=== PATIENT | female | born 2000 | race Caucasian/White ===

== ENCOUNTER → 2022-11-06 16:28 | Outpatient (ROUT) | payer OTHER, SELFPAY ==
[2022-11-06 18:20] LABS: Urine N gonorrhoeae NOT DETECTED
[2022-11-06 18:33] LABS: Urine Chlamydia NOT DETECTED
== END ==
PROVIDERS: PCP Family Medicine; Visit Provider Family Medicine
DX: Z11.3 Encounter for screening for infections with a predominantly sexual mode of transmission (principal)
CPT/HCPCS: 87491; 87591

== ENCOUNTER → 2023-11-25 09:38 | Outpatient (CLI) | payer OTHER, SELFPAY | LOC: CAR 09:39 | PROVIDERS: PCP Family Medicine; Referring Provider Family Medicine; Visit Provider Family Medicine | DX: R00.2 Palpitations (principal); R07.89 Other chest pain; F41.9 Anxiety disorder, unspecified; R06.02 Shortness of breath | CPT/HCPCS: 93242 ==

== ENCOUNTER 2024-01-15 14:16 | Emergency (ER) | payer OTHER, SELFPAY ==
[2024-01-15] VITALS (10 sets, daily range): BP systolic 126–145; BP diastolic 67–93; PULSE 67–103; RESP 14–22; TEMP 36.8; O2SAT 97–100; BMI 20.7
[2024-01-15] MEDS: ONDANSETRON 4 MG/2 ML INJ IV (14:47)
--- NOTE | 2024-01-15 14:48 | ED.NAVMDI ---
HPI - Nausea/Vomiting/Diarrhea General Chief complaint: Nausea/Vomiting/Diarrhea Stated complaint: Vomiting stomach acid, nausea Time Seen by Provider: 01/15/24 14:48 Source: patient Mode of arrival: Ambulatory History of Present Illness HPI Narrative: Otherwise healthy 23-year-old woman presents with 3 days of continuous vomiting. At this point she is unable to keep water down. Minimal diarrhea, abdominal pain secondary to the work of vomiting, she gets hot flushes with vomiting but no overt fevers. No palpitations shortness of breath. No specific headaches, currently has an IUD in place Related Data Home Medications Medication Instructions Recorded Confirmed levonorgestrel 20.4 mcg/24 hr (up intrauterine 08/13/22 11/15/23 to 8 yrs) 52 mg intrauterine device (Liletta) Previous Rx's Medication Instructions Recorded hydroxyzine HCl 10 mg tablet 5 - 10 mg (0.5 - 1 x 10 mg) PO 11/06/22 Q6-8H PRN anxiety #45 tabs fluoxetine 20 mg capsule (Prozac) 20 mg PO DAILY #30 caps 11/15/23 propranolol 10 mg tablet 10 mg PO BID PRN 11/15/23 anxiety/palpitations #60 tabs ondansetron HCl 4 mg tablet 4 mg PO Q8H PRN nausea and 01/15/24 vomiting #14 tabs Allergies Allergy/AdvReac Type Severity Reaction Status Date / Time No Known Drug Allergies Allergy Verified 01/15/24 14:27 Review of Systems Review of Systems Narrative: Pertinent positive and negative findings as per HPI Patient History Medical History Vision disorder Eczema (~2013) Surgical History Bowman teeth removed (~2018) Social History Smoking Status: Never smoker alcohol intake: current substance use type: does not use Smoking Status: Never smoker Alcohol type: hard liquor Exam Initial Vital Signs Initial Vital Signs: Vital Signs Temperature 98.2 F 01/15/24 14:22 Pulse Rate 95 H 01/15/24 14:22 Respiratory Rate 14 01/15/24 14:22 Blood Pressure 145/82 H 01/15/24 14:22 Pulse Oximetry 97 01/15/24 14:22 Oxygen Delivery Method Room Air 01/15/24 14:22 General: in no acute distress. Able to give a complete and coherent history. HEENT: Dry mucous membranes, normal sclera with reactive pupils, Respiratory: Lungs are clear to auscultation, no wheezing no rales no rhonchi. Full and symmetrical air movement Cardiac: Regular rate and rhythm no murmurs no bruits Abdomen: Soft, nontender, good bowel tones, no flank pain Skin: Warm and dry, no rashes Neurologic: Grossly neurologically intact with no obvious asymmetries or abnormalities Extremities: No trauma, well perfused Psych: Cooperative, appropriate insight and affect Course Orders Ordered: ED Orders 01/15/24 14:30 Urine Culture Stat Urine Microscopic Stat 01/15/24 14:40 Complete Blood Count AUTO DIFF Stat Comprehensive Metabolic Panel Stat Lipase Stat 01/15/24 15:31 US abdomen limited Stat Ondansetron HCl (Ondansetron 4 Mg/2 Ml Inj) 4 mg IV NOW PRN PRN Reason: Nausea And Vomiting Last Admin: 01/15/24 14:47 Dose: 4 mg Documented By: JEAN Ondansetron HCl (Ondansetron 4 Mg Odt) 4 mg PO NOW PRN PRN Reason: Nausea And Vomiting Discontinued Medications Droperidol (Droperidol 5 Mg/2 Ml Vial) 0.625 mg IV NOW ONE Stop: 01/15/24 15:32 Last Admin: 01/15/24 15:35 Dose: Not Given Documented By: JEAN Sodium Chloride (Normal Saline 0.9%) 1,000 mls @ 1,000 mls/hr IV BOLUS ONE Stop: 01/15/24 15:53 Last Infusion: 01/15/24 15:29 Dose: Infused Documented By: Admin: 01/15/24 15:00 Dose: 1,000 mls/hr Documented By: JEAN Metoclopramide HCl (Metoclopramide 10 Mg/2 Ml Inj) 10 mg IV NOW ONE Stop: 01/15/24 15:53 Last Admin: 01/15/24 15:55 Dose: 10 mg Documented By: KANA Vital Signs Vital signs: Vital Signs - 8 hr 01/15/24 14:22 Temperature 98.2 F Pulse Rate 95 H Respiratory Rate 14 Blood Pressure 145/82 H Pulse Oximetry 97 Oxygen Delivery Method Room Air MDM - Nausea/Vomiting/Diarrhea Lab Data 01/15/24 14:40 01/15/24 14:40 Labs: Lab Results 01/15/24 01/15/24 Range/Units 14:30 14:40 WBC 5.5 (4.5-11.0) X10^3/uL RBC 4.42 (4.0-5.2) X10^6/uL Hgb 14.3 (12.0-16.0) g/dL Hct 41.6 (36-46) % MCV 94.1 (80-100) fL MCH 32.5 (26-34) PG MCHC 34.5 (30-36) % RDW 12.2 (11.6-14.8) % Plt Count 205 (150-400) X10^3/uL Neut % (Auto) 51.4 (50-75) % Lymph % (Auto) 38.4 (25-40) % Fisher % (Auto) 9.5 (3-14) % Eos % (Auto) 0.3 L (2-4) % Baso % (Auto) 0.4 (0-2) % Neut # (Auto) 2800 (2034-6227) /uL Lymph # (Auto) 2100 (6282-4868) /uL Fisher # (Auto) 500 (0-900) /uL Eos # (Auto) 0 (0-450) /uL Baso # (Auto) 0 (0-100) /uL Sodium 138 (137-145) mmol/L Potassium 3.8 (3.4-5.1) mmol/L Chloride 103 (98-107) mmol/L Carbon Dioxide 23 (22-32) mmol/L BUN 15 (7-17) mg/dL Creatinine 0.72 (0.52-1.04) mg/dL Estimated GFR > 60 (>60) mL/min BUN/Creatinine Ratio 20.8 (6-22) Glucose 101 H (70-100) mg/dL Calcium 9.3 (8.4-10.2) mg/dL Total Bilirubin 1.9 H (0.2-1.3) mg/dL AST 76 H (14-36) IU/L ALT 38 H (<35) IU/L Alkaline Phosphatase 67 (38-126) U/L Total Protein 7.8 (6.3-8.2) g/dL Albumin 4.6 (3.5-5.0) g/dL Globulin 3.2 (1.7-4.1) g/dL Albumin/Globulin Ratio 1.4 (1.0-2.8) Lipase 343 H (23-300) U/L Urine RBC None seen (0-5/HPF) Urine WBC 0-1/hpf (0-5/HPF) Ur Squamous Epith Cells 5-10 /hpf H (0-5/HPF) Amorphous Sediment 2+ Urine Bacteria Occasional (0-1) (None) Ur Culture Indicated? Specimen cultured Vol Urine Centrifuged 10ml (spun) Point of Care Testing Test Results Negative Urine Dip Bedside Urine Glucose Negative Bedside Urine Bilirubin - Negative Bedside Urine Ketone - Negative Urine Specific [place] 1.010 Bedside Urine Occult Blood - Negative Bedside Urine pH 6.5 Bedside Urine Protein - Negative Bedside Urine Urobilinogen - Negative Bedside Urine Nitrite - Negative Bedside Urine Leukocytes +/- 15 Esterase MDM Narrative Medical decision making narrative: CC: Nausea and vomiting Complicating co-morbidities: None Data collected from: patient Social determinants of health that may influence the patients condition: Works as a caregiver at [employer] Differential considered: Viral etiology, cholecystitis or choledocholithiasis, pancreatitis, Exam documented above, pertinent findings include: Patient has dry mucous membranes but exam is otherwise fairly unremarkable. She does not have significant abdominal tenderness and certainly does not have an acute abdomen Lab Test results independently reviewed as above. Pertinent findings: CBC is reassuring Urine test is negative Urine dip does not suggest infection Chemistries show normal renal function Liver studies are slightly elevated at bilirubin of 1.9, AST of 76 ALT of 38 lipase of 343 Imaging studies independently reviewed: Gallbladder ultrasound is ordered in light of the abnormal liver studies. Preliminary report indicates fatty liver but no gallbladder stones or choledocholithiasis Treatments: L of fluid, IV Zofran, IV Reglan Discussion: Patient is feeling better after fluids Zofran and Reglan. At this point the best explanation is a viral syndrome causing mild hepatitis with a persistent nausea. Reviewed findings with patient and her mother. There was no indication for additional imaging studies or hospitalization at this time. She will be given a prescription for Zofran to use at home. She is tolerating fluids at this time. I did add a viral hepatitis panel to blood work in the lab that we will need follow up with her primary care physician. I did strongly recommend that she follow up with her primary care physician to confirm that the liver enzymes and liver inflammation is returning to normal after this acute episode. Questions are answered and she is safe for discharge Discharge Plan Departure Patient Disposition: Home Clinical Impression: Acute vomiting Instructions: DI for Nausea -- Adult Activity Restrictions/Additional Instructions: Thank you for coming in today, it was nice to see you again, I am sorry it was like this. You do look better after the fluids and I am glad the medication is helped with the nausea. I did not find an acute reason for your nausea. Specifically no bacterial infection no gallstones or gallbladder disease. I did note that some of your liver enzymes were slightly elevated which can be common with viruses, I did add a viral hepatitis panel looking for actual hepatitis. If any of these return positive we will contact you. You do need to follow up with your regular doctor to make sure that all of your liver studies do return to normal when you are feeling better I have given you a prescription for ondansetron to help with nausea. If you find that you are getting worse or develop any new symptoms, please feel free to return to the emergency department for further evaluation. Prescriptions: New ondansetron HCl 4 mg tablet 4 mg PO Q8H PRN (Reason: nausea and vomiting) Qty: 14 0RF No Action Liletta 20.4 mcg/24 hrs (8 yrs) 52 mg intrauterine device intrauterine Patient Comments: Placed 11/2018 hydroxyzine HCl 10 mg tablet 5 - 10 mg PO Q6-8H PRN (Reason: anxiety) Qty: 45 5RF fluoxetine [Prozac] 20 mg capsule 20 mg PO DAILY Qty: 30 11RF Rx Instructions: put on file propranolol 10 mg tablet 10 mg PO BID PRN (Reason: anxiety/palpitations) Qty: 60 5RF Referrals: Duglas Ramírez DO [Primary Care Provider] - Stand Alone Forms: Patient Portal/API/Survey
[2024-01-15 14:51] LABS: Amorphous Sediment Urine 2+; Bacteria Urine Occasional (0-1); Culture Indicated Urine Specimen Cultured; RBC Urine None Seen (0-5/HPF); Squamous Epithelial Cell Urine 5-10 /HPF (0-5/HPF); Urine Volume 10mL (spun); WBC Urine 0-1/HPF (0-5/HPF)
[2024-01-15 14:51] LABS: Add Manual Diff / Slide Review NO; Basophils Absolute Auto 0 /uL (0-100); Basophils Percent Auto 0.4 % (0-2); Eosinophils Absolute Auto 0 /uL (0-450); Eosinophils Percent Auto 0.3 % (2-4); Hematocrit 41.6 % (36-46); Hemoglobin 14.3 g/dL (12.0-16.0); Lymphocytes Absolute Auto 2100 /uL (1100-4500); Lymphocytes Percent Auto 38.4 % (25-40); Mean Corpuscular HGB Conc 34.5 % (30-36); Mean Corpuscular Hemoglobin 32.5 PG (26-34); Mean Corpuscular Volume 94.1 fL (80-100); Monocytes Absolute Auto 500 /uL (0-900); Monocytes Percent Auto 9.5 % (3-14); Neutrophils Absolute Auto 2800 /uL (1500-7000); Neutrophils Percent Auto 51.4 % (50-75); Platelet Count 205 X10^3/uL (150-400); Red Blood Cell Count 4.42 X10^6/uL (4.0-5.2); Red Cell Distribution Width 12.2 % (11.6-14.8); White Blood Cell Count 5.5 X10^3/uL (4.5-11.0)
[2024-01-15] MEDS: SODIUM CHLORIDE 0.9% 1,000 ML 1000 ML IV (15:00)
[2024-01-15 15:01] LABS: Alanine Aminotransferase 38 IU/L (<35); Albumin 4.6 g/dL (3.5-5.0); Albumin Globulin Ratio 1.4 (1.0-2.8); Alkaline Phosphatase 67 U/L (38-126); Aspartate Aminotransferase 76 IU/L (14-36); BUN Creatinine Ratio 20.8 (6-22); Bilirubin Total 1.9 mg/dL (0.2-1.3); Blood Urea Nitrogen 15 mg/dL (7-17); Calcium 9.3 mg/dL (8.4-10.2); Carbon Dioxide 23 mmol/L (22-32); Chloride 103 mmol/L (98-107); Estimated Glomerular Filt Rate > 60 mL/min (>60); Globulin 3.2 g/dL (1.7-4.1); Glucose 101 mg/dL (70-100); HEMOLYSIS < 15 (0-50); Lipase 343 U/L (23-300); Potassium 3.8 mmol/L (3.4-5.1); Sodium 138 mmol/L (137-145); Total Protein 7.8 g/dL (6.3-8.2)
--- NOTE | 2024-01-15 15:31 | DI.US.S_ITS ---
PROCEDURE: US ABDOMEN LIMITED INDICATIONS: elevated liver enzymes and uncontrolled vomiting TECHNIQUE: Real-time focused scanning was performed of the abdomen, with image documentation. COMPARISON: None. FINDINGS: Liver: Hepatic parenchyma shows diffuse increased echogenicity consistent with fatty infiltration. Main portal vein is hepatopetal Gallbladder: Sonolucent without cholelithiasis. No gallbladder wall thickening. No pericholecystic fluid or Domingo's sign. Common Bile Duct: 2.8 mm. Pancreas: Unremarkable as visualized IMPRESSION: Unremarkable right upper quadrant ultrasound Approved by: Hebert Martinez M.D. on 01/15/2024 at 18:12
[2024-01-15] MEDS: METOCLOPRAMIDE 10 MG/2 ML INJ IV (15:55)
[2024-01-17 06:35] LABS: HBsAg Screen Negative (Negative); Hepatitis A Antibody IgM Negative (Negative); Hepatitis B Core Antibody IgM Negative (Negative); Hepatitis C Antibody Non Reactive (Non Reactive)
== END 2024-01-15 18:09 | disposition home or self-care (01) ==
PROVIDERS: Emergency Provider Emergency Medicine; PCP Family Medicine
DX: R11.2 Nausea with vomiting, unspecified (principal); R10.9 Unspecified abdominal pain; R19.7 Diarrhea, unspecified; Z97.5 Presence of (intrauterine) contraceptive device
CPT/HCPCS: 36415; 76705; 80053; 80074; 81003; 81015; 81025; 83690; 85025; 87086; 96374; 96375; 99284; J2405; J2765

== ENCOUNTER 2024-01-19 04:44 | Emergency (ER) | payer OTHER, SELFPAY ==
[2024-01-19] VITALS (10 sets, daily range): BP systolic 119–161; BP diastolic 66–99; PULSE 87–145; RESP 15–24; TEMP 36.6; O2SAT 97–99; BMI 20.7
--- NOTE | 2024-01-19 05:12 | ED.GENADULT ---
HPI - General Adult <Hiram Toussaint MD - Last Filed: 01/19/24 15:49> General Chief complaint: Toxicology Problem Stated complaint: alcohol withdrawls Time Seen by Provider: 01/19/24 05:01 Source: patient Mode of arrival: Ambulatory History of Present Illness HPI narrative: 23-year-old female has been drinking regularly for a number of weeks, last drink yesterday, feels shaky, does not want to be drinking anymore, not seeking inpatient detox but would like to wean from alcohol on her own. No seizure shaking activity. Denies prior detox service consultations. She denies thoughts of hurting herself or others. She denies dose of other drugs. She drinks up to 10 alcoholic beverages daily, ranging all kinds of drinks, often times shots of alcohol. Related Data Home Medications Medication Instructions Recorded Confirmed levonorgestrel 20.4 mcg/24 hr (up intrauterine 08/13/22 11/15/23 to 8 yrs) 52 mg intrauterine device (Liletta) Previous Rx's Medication Instructions Recorded hydroxyzine HCl 10 mg tablet 5 - 10 mg (0.5 - 1 x 10 mg) PO 11/06/22 Q6-8H PRN anxiety #45 tabs fluoxetine 20 mg capsule (Prozac) 20 mg PO DAILY #30 caps 11/15/23 propranolol 10 mg tablet 10 mg PO BID PRN 11/15/23 anxiety/palpitations #60 tabs ondansetron HCl 4 mg tablet 4 mg PO Q8H PRN nausea and 01/15/24 vomiting #14 tabs Allergies Allergy/AdvReac Type Severity Reaction Status Date / Time No Known Drug Allergies Allergy Verified 01/15/24 14:27 Review of Systems <Hiram Toussaint MD - Last Filed: 01/19/24 15:49> Review of Systems Narrative: See HPI Patient History <Hiram Toussaint MD - Last Filed: 01/19/24 15:49> Medical History Vision disorder Eczema (~2013) Surgical History [place] teeth removed (~2018) Social History Smoking Status: Never smoker alcohol intake: current substance use type: does not use Smoking Status: Never smoker Alcohol type: hard liquor Exam <Hiram Toussaint MD - Last Filed: 01/19/24 15:49> Narrative Exam Narrative: GENERAL: Well-developed patient, in mild distress. HEAD: Atraumatic. Normocephalic. EYES: Pupils equal round and reactive. Extraocular motions intact. No scleral icterus. No injection or drainage. ENT: Nose without bleeding, purulent drainage. Throat without erythema, tonsillar hypertrophy or exudate. Airway patent. NECK: Trachea midline. Non tender CARDIOVASCULAR: Regular rate and rhythm without murmurs, gallops, or rubs. RESPIRATORY: Clear to auscultation. Breath sounds equal bilaterally. No wheezes, rales, or rhonchi. GASTROINTESTINAL: Abdomen soft, non-tender, nondistended. EXTREMITIES: No edema or joint tenderness. BACK: Nontender without deformity or crepitance. No flank tenderness. NEURO: AOx3. Motor functions grossly nonfocal SKIN: No rash or erythema of visible areas Initial Vital Signs Initial Vital Signs: Vital Signs Temperature 97.8 F 01/19/24 05:07 Pulse Rate 145 H 01/19/24 05:07 Respiratory Rate 18 01/19/24 05:07 Blood Pressure 161/96 H 01/19/24 05:07 Pulse Oximetry 98 01/19/24 05:07 Oxygen Delivery Method Room Air 01/19/24 05:07 <German Melendez DO - Last Filed: 01/19/24 09:48> Initial Vital Signs Initial Vital Signs: Vital Signs Temperature 97.8 F 01/19/24 05:07 Pulse Rate 145 H 01/19/24 05:07 Respiratory Rate 18 01/19/24 05:07 Blood Pressure 161/96 H 01/19/24 05:07 Pulse Oximetry 98 01/19/24 05:07 Oxygen Delivery Method Room Air 01/19/24 05:07 Course <Hiram Toussaint MD - Last Filed: 01/19/24 15:49> Orders Ordered: Discontinued Medications Sodium Chloride (Normal Saline 0.9%) 1,000 mls @ 1,000 mls/hr IV BOLUS ONE Stop: 01/19/24 06:15 Last Infusion: 01/19/24 06:32 Dose: Infused Documented By: Admin: 01/19/24 05:20 Dose: 1,000 mls/hr Documented By: FANTA Thiamine HCl 100 mg/ Sodium (Chloride) 101 mls @ 404 mls/hr IV NOW ONE Stop: 01/19/24 05:17 Last Infusion: 01/19/24 05:52 Dose: Infused Documented By: Admin: 01/19/24 05:21 Dose: 404 mls/hr Documented By: FANTA Sodium Chloride (Normal Saline 0.9%) 1,000 mls @ 1,000 mls/hr IV BOLUS ONE Stop: 01/19/24 06:42 Last Infusion: 01/19/24 07:05 Dose: Infused Documented By: Admin: 01/19/24 06:29 Dose: 1,000 mls/hr Documented By: MARS Ondansetron HCl (Ondansetron 4 Mg/2 Ml Inj) 4 mg IV NOW ONE Stop: 01/19/24 05:17 Last Admin: 01/19/24 05:20 Dose: 4 mg Documented By: FANTA Phenobarbital (Phenobarbital 65 Mg/Ml Vial) 130 mg IV NOW ONE Stop: 01/19/24 06:10 Last Admin: 01/19/24 06:29 Dose: 130 mg Documented By: MARS Phenobarbital (Phenobarbital 65 Mg/Ml Vial) 130 mg IV NOW ONE Stop: 01/19/24 07:13 Last Admin: 01/19/24 08:31 Dose: 130 mg Documented By: JEAN Vital Signs Vital signs: Vital Signs - 8 hr 01/19/24 08:00 01/19/24 08:00 01/19/24 08:33 Pulse Rate 100 H Respiratory Rate 21 Blood Pressure 119/82 134/80 Pulse Oximetry 99 01/19/24 08:33 01/19/24 09:00 01/19/24 09:00 Pulse Rate 118 H 96 H Respiratory Rate 16 24 Blood Pressure 132/78 Pulse Oximetry 98 97 <German Melendez DO - Last Filed: 01/19/24 09:48> Orders Ordered: Discontinued Medications Sodium Chloride (Normal Saline 0.9%) 1,000 mls @ 1,000 mls/hr IV BOLUS ONE Stop: 01/19/24 06:15 Last Infusion: 01/19/24 06:32 Dose: Infused Documented By: Admin: 01/19/24 05:20 Dose: 1,000 mls/hr Documented By: FANTA Thiamine HCl 100 mg/ Sodium (Chloride) 101 mls @ 404 mls/hr IV NOW ONE Stop: 01/19/24 05:17 Last Infusion: 01/19/24 05:52 Dose: Infused Documented By: Admin: 01/19/24 05:21 Dose: 404 mls/hr Documented By: FANTA Sodium Chloride (Normal Saline 0.9%) 1,000 mls @ 1,000 mls/hr IV BOLUS ONE Stop: 01/19/24 06:42 Last Infusion: 01/19/24 07:05 Dose: Infused Documented By: Admin: 01/19/24 06:29 Dose: 1,000 mls/hr Documented By: MARS Ondansetron HCl (Ondansetron 4 Mg/2 Ml Inj) 4 mg IV NOW ONE Stop: 01/19/24 05:17 Last Admin: 01/19/24 05:20 Dose: 4 mg Documented By: FANTA Phenobarbital (Phenobarbital 65 Mg/Ml Vial) 130 mg IV NOW ONE Stop: 01/19/24 06:10 Last Admin: 01/19/24 06:29 Dose: 130 mg Documented By: MARS Phenobarbital (Phenobarbital 65 Mg/Ml Vial) 130 mg IV NOW ONE Stop: 01/19/24 07:13 Last Admin: 01/19/24 08:31 Dose: 130 mg Documented By: JEAN Vital Signs Vital signs: Vital Signs - 8 hr 01/19/24 08:00 01/19/24 08:00 01/19/24 08:33 Pulse Rate 100 H Respiratory Rate 21 Blood Pressure 119/82 134/80 Pulse Oximetry 99 01/19/24 08:33 01/19/24 09:00 01/19/24 09:00 Pulse Rate 118 H 96 H Respiratory Rate 16 24 Blood Pressure 132/78 Pulse Oximetry 98 97 Medical Decision Making <Hiram Toussaint MD - Last Filed: 01/19/24 15:49> Lab Data Lab results reviewed: Yes I reviewed the patient's lab results. Lab results narrative: Blood alcohol level 119. White blood cell count 10,000, hemoglobin 14.9, platelets adequate. Electrolytes unremarkable, BNP normal renal function noted, glucose 91. Urine tox screen negative. Urine dip negative. 01/19/24 05:13 01/19/24 05:13 Labs: Lab Results 01/19/24 01/19/24 01/19/24 Range/Units 05:12 05:13 07:00 WBC 10.0 (4.5-11.0) X10^3/uL RBC 4.63 (4.0-5.2) X10^6/uL Hgb 14.9 (12.0-16.0) g/dL Hct 43.5 (36-46) % MCV 94.1 (80-100) fL MCH 32.3 (26-34) PG MCHC 34.3 (30-36) % RDW 12.2 (11.6-14.8) % Plt Count 167 (150-400) X10^3/uL Neut % (Auto) 58.7 (50-75) % Lymph % (Auto) 31.0 (25-40) % Roberts % (Auto) 9.4 (3-14) % Eos % (Auto) 0.5 L (2-4) % Baso % (Auto) 0.4 (0-2) % Neut # (Auto) 5900 (5796-9289) /uL Lymph # (Auto) 3100 (2452-3741) /uL Roberts # (Auto) 900 (0-900) /uL Eos # (Auto) 0 (0-450) /uL Baso # (Auto) 0 (0-100) /uL PT 11.6 (9.4-12.5) SECONDS INR 1.0 (0.9-1.3) Sodium 139 (137-145) mmol/L Potassium 3.5 (3.4-5.1) mmol/L Chloride 102 (98-107) mmol/L Carbon Dioxide 18 L (22-32) mmol/L BUN 15 (7-17) mg/dL Creatinine 0.88 (0.52-1.04) mg/dL Estimated GFR > 60 (>60) mL/min BUN/Creatinine Ratio 17.0 (6-22) Glucose 91 (70-100) mg/dL Lactate 4.0 H 3.1 H (0.7-2.1) mmol/L Calcium 9.2 (8.4-10.2) mg/dL Total Bilirubin 2.0 H (0.2-1.3) mg/dL AST 160 H (14-36) IU/L ALT 59 H (<35) IU/L Alkaline Phosphatase 83 (38-126) U/L Total Protein 8.2 (6.3-8.2) g/dL Albumin 4.9 (3.5-5.0) g/dL Globulin 3.3 (1.7-4.1) g/dL Albumin/Globulin Ratio 1.5 (1.0-2.8) U Opiates 300ng/mL cut Negative (Negative) Ur Oxycodone Screen Negative (Negative) Urine Methadone Screen Negative (Negative) Ur Barbiturates Screen Negative (Negative) U Tricyclic Antidepress Negative (Negative) Ur Phencyclidine Scrn Negative (Negative) Ur Amphetamines Screen Negative (Negative) U Methamphetamines Scrn Negative (Negative) Ur MDMA Scrn (Ecstasy) Negative (Negative) U Benzodiazepines Scrn Negative (Negative) Urine Cocaine Screen Negative (Negative) U Marijuana (THC) Screen Negative (Negative) Urine pH Normal (Normal) Urine Specific [place] Normal (Normal) Ethyl Alcohol 119 H ( - 10) mg/dL Ur Creatinine Normal (Normal) Point of Care Testing Test Results Negative Glucose POC 80 Urine Dip Bedside Urine Glucose Negative Bedside Urine Bilirubin - Negative Bedside Urine Ketone - Negative Urine Specific [place] 1.025 Bedside Urine Occult Blood - Negative Bedside Urine pH 6 Bedside Urine Protein + 30 Bedside Urine Urobilinogen - Negative Bedside Urine Nitrite - Negative Bedside Urine Leukocytes - Negative Esterase Point of care testing: Point of Care Testing Test Results Negative Glucose POC 80 Urine Dip Bedside Urine Glucose Negative Bedside Urine Bilirubin - Negative Bedside Urine Ketone - Negative Urine Specific [place] 1.025 Bedside Urine Occult Blood - Negative Bedside Urine pH 6 Bedside Urine Protein + 30 Bedside Urine Urobilinogen - Negative Bedside Urine Nitrite - Negative Bedside Urine Leukocytes - Negative Esterase [facility] Narrative Medical decision making narrative: 23-year-old female with alcohol use regular, last drink yesterday, feels like she is having withdrawal, no seizure activity. No tremulousness. Afebrile, sirs screen negative. She does not necessarily want to talk to services SIRS at this time, labs pending. Lactate 4 elevated, IV fluid bolus, initial CIWA 12, IV phenobarbital 130 mg Repeat CIWA 8, decreased some, we will repeat IV phenobarb 130 mg 03001, further assess after 2nd dose phenobarbital to be given, repeat lactate to be drawn after IV fluid bolus as well. Signed out to [facility] ED shift physician Dr. Al Melendez: Received turned over. Review patient's history and physical exam. Patient was receive phenobarbital. Upon my evaluation she states she was feeling somewhat better. Her CIWA continues to decrease. She was tolerating oral intake. Afebrile. Again declined offer for an attempt to place her in detox/rehab. She also declined the offer to talk to social work. Patient was stable for home discharge. She was given return precautions. She has nausea medication at home. <German Melendez, DO - Last Filed: 01/19/24 09:48> Lab Data Labs: Lab Results 01/19/24 01/19/24 01/19/24 Range/Units 05:12 05:13 07:00 WBC 10.0 (4.5-11.0) X10^3/uL RBC 4.63 (4.0-5.2) X10^6/uL Hgb 14.9 (12.0-16.0) g/dL Hct 43.5 (36-46) % MCV 94.1 (80-100) fL MCH 32.3 (26-34) PG MCHC 34.3 (30-36) % RDW 12.2 (11.6-14.8) % Plt Count 167 (150-400) X10^3/uL Neut % (Auto) 58.7 (50-75) % Lymph % (Auto) 31.0 (25-40) % Roberts % (Auto) 9.4 (3-14) % Eos % (Auto) 0.5 L (2-4) % Baso % (Auto) 0.4 (0-2) % Neut # (Auto) 5900 (7458-5052) /uL Lymph # (Auto) 3100 (0583-9093) /uL Roberts # (Auto) 900 (0-900) /uL Eos # (Auto) 0 (0-450) /uL Baso # (Auto) 0 (0-100) /uL PT 11.6 (9.4-12.5) SECONDS INR 1.0 (0.9-1.3) Sodium 139 (137-145) mmol/L Potassium 3.5 (3.4-5.1) mmol/L Chloride 102 (98-107) mmol/L Carbon Dioxide 18 L (22-32) mmol/L BUN 15 (7-17) mg/dL Creatinine 0.88 (0.52-1.04) mg/dL Estimated GFR > 60 (>60) mL/min BUN/Creatinine Ratio 17.0 (6-22) Glucose 91 (70-100) mg/dL Lactate 4.0 H 3.1 H (0.7-2.1) mmol/L Calcium 9.2 (8.4-10.2) mg/dL Total Bilirubin 2.0 H (0.2-1.3) mg/dL AST 160 H (14-36) IU/L ALT 59 H (<35) IU/L Alkaline Phosphatase 83 (38-126) U/L Total Protein 8.2 (6.3-8.2) g/dL Albumin 4.9 (3.5-5.0) g/dL Globulin 3.3 (1.7-4.1) g/dL Albumin/Globulin Ratio 1.5 (1.0-2.8) U Opiates 300ng/mL cut Negative (Negative) Ur Oxycodone Screen Negative (Negative) Urine Methadone Screen Negative (Negative) Ur Barbiturates Screen Negative (Negative) U Tricyclic Antidepress Negative (Negative) Ur Phencyclidine Scrn Negative (Negative) Ur Amphetamines Screen Negative (Negative) U Methamphetamines Scrn Negative (Negative) Ur MDMA Scrn (Ecstasy) Negative (Negative) U Benzodiazepines Scrn Negative (Negative) Urine Cocaine Screen Negative (Negative) U Marijuana (THC) Screen Negative (Negative) Urine pH Normal (Normal) Urine Specific [place] Normal (Normal) Ethyl Alcohol 119 H ( - 10) mg/dL Ur Creatinine Normal (Normal) Point of Care Testing Test Results Negative Glucose POC 80 Urine Dip Bedside Urine Glucose Negative Bedside Urine Bilirubin - Negative Bedside Urine Ketone - Negative Urine Specific [place] 1.025 Bedside Urine Occult Blood - Negative Bedside Urine pH 6 Bedside Urine Protein + 30 Bedside Urine Urobilinogen - Negative Bedside Urine Nitrite - Negative Bedside Urine Leukocytes - Negative Esterase Point of care testing: Point of Care Testing Test Results Negative Glucose POC 80 Urine Dip Bedside Urine Glucose Negative Bedside Urine Bilirubin - Negative Bedside Urine Ketone - Negative Urine Specific [place] 1.025 Bedside Urine Occult Blood - Negative Bedside Urine pH 6 Bedside Urine Protein + 30 Bedside Urine Urobilinogen - Negative Bedside Urine Nitrite - Negative Bedside Urine Leukocytes - Negative Esterase MDM Narrative Medical decision making narrative: 23-year-old female with alcohol use regular, last drink yesterday, feels like she is having withdrawal, no seizure activity. No tremulousness. Afebrile, sirs screen negative. She does not necessarily want to talk to services SIRS at this time, labs pending. Lactate 4 elevated, IV fluid bolus, initial CIWA 12, IV phenobarbital 130 mg Repeat CIWA 8, decreased some, we will repeat IV phenobarb 130 mg [id number], further assess after 2nd dose phenobarbital to be given, repeat lactate to be given after IV fluid bolus as well. [facility]: Received turned over. Review patient's history and physical exam. Patient was receive phenobarbital. Upon my evaluation she states she was feeling somewhat better. Her CIWA continues to decrease. She was tolerating oral intake. Afebrile. Again declined offer for an attempt to place her in detox/rehab. She also declined the offer to talk to social work. Patient was stable for home discharge. She was given return precautions. She has nausea medication at home. Discharge Plan Departure Patient Disposition: Home Clinical Impression: Alcohol withdrawal syndrome Instructions: DI for Alcohol Use Disorder Activity Restrictions/Additional Instructions: I do recommend that you abstain from using alcohol. No driving for the next 24 hours. You can continue to use the ondansetron/Zofran that you were given a prescription for. You can take this every 4 hours as needed rather than every 8 hours as stated on the bottle. You can take Tylenol for any headaches. Contact your primary doctor for follow-up. Return to the emergency department for new symptoms. Prescriptions: No Action Liletta 20.4 mcg/24 hrs (7 yrs) 52 mg intrauterine device intrauterine Patient Comments: Placed 11/2018 hydroxyzine HCl 10 mg tablet 5 - 10 mg PO Q6-8H PRN (Reason: anxiety) Qty: 45 5RF fluoxetine [Prozac] 20 mg capsule 20 mg PO DAILY Qty: 30 11RF Rx Instructions: put on file propranolol 10 mg tablet 10 mg PO BID PRN (Reason: anxiety/palpitations) Qty: 60 5RF ondansetron HCl 4 mg tablet 4 mg PO Q8H PRN (Reason: nausea and vomiting) Qty: 14 0RF Referrals: Duglas Ramírez DO [Primary Care Provider] - Stand Alone Forms: Patient Portal/API/Survey
[2024-01-19] MEDS: ONDANSETRON 4 MG/2 ML INJ IV (05:20)
[2024-01-19] MEDS: SODIUM CHLORIDE 0.9% 1,000 ML 1000 ML IV ×2 (05:20→06:29)
[2024-01-19] MEDS: THIAMINE 100 MG in SODIUM CHLORIDE 0.9% 100 ML 404 MG IV (05:21)
[2024-01-19 05:22] LABS: Add Manual Diff / Slide Review NO; Basophils Absolute Auto 0 /uL (0-100); Basophils Percent Auto 0.4 % (0-2); Eosinophils Absolute Auto 0 /uL (0-450); Eosinophils Percent Auto 0.5 % (2-4); Hematocrit 43.5 % (36-46); Hemoglobin 14.9 g/dL (12.0-16.0); Lymphocytes Absolute Auto 3100 /uL (1100-4500); Mean Corpuscular HGB Conc 34.3 % (30-36); Mean Corpuscular Hemoglobin 32.3 PG (26-34); Mean Corpuscular Volume 94.1 fL (80-100); Monocytes Absolute Auto 900 /uL (0-900); Monocytes Percent Auto 9.4 % (3-14); Neutrophils Absolute Auto 5900 /uL (1500-7000); Neutrophils Percent Auto 58.7 % (50-75); Platelet Count 167 X10^3/uL (150-400); Red Blood Cell Count 4.63 X10^6/uL (4.0-5.2); Red Cell Distribution Width 12.2 % (11.6-14.8)
[2024-01-19 05:26] LABS: Ur Creatinine Normal (Normal); Ur Specific Gravity Normal (Normal); Urine Amphetamines Negative (Negative); Urine Barbiturates Negative (Negative); Urine Benzodiazepines Negative (Negative); Urine Cocaine Negative (Negative); Urine MDMA Negative (Negative); Urine Methadone Negative (Negative); Urine Methamphetamines Negative (Negative); Urine Opiates Negative (Negative); Urine Oxycodone Negative (Negative); Urine Phencyclidine Negative (Negative); Urine THC Negative (Negative); Urine Tricyclic Antidepressant Negative (Negative); Urine pH Normal (Normal)
[2024-01-19 05:32] LABS: Prothrombin Time 11.6 SECONDS (9.4-12.5)
[2024-01-19 05:37] LABS: Alanine Aminotransferase 59 IU/L (<35); Albumin 4.9 g/dL (3.5-5.0); Albumin Globulin Ratio 1.5 (1.0-2.8); Alkaline Phosphatase 83 U/L (38-126); Aspartate Aminotransferase 160 IU/L (14-36); Blood Urea Nitrogen 15 mg/dL (7-17); Calcium 9.2 mg/dL (8.4-10.2); Carbon Dioxide 18 mmol/L (22-32); Chloride 102 mmol/L (98-107); Estimated Glomerular Filt Rate > 60 mL/min (>60); Ethanol (ETOH) 119 mg/dL; Globulin 3.3 g/dL (1.7-4.1); Glucose 91 mg/dL (70-100); HEMOLYSIS < 15 (0-50); Potassium 3.5 mmol/L (3.4-5.1); Sodium 139 mmol/L (137-145); Total Protein 8.2 g/dL (6.3-8.2)
[2024-01-19] MEDS: PHENobarbital 65 MG/ML VIAL 130 MG IV ×2 (06:29→08:31)
[2024-01-19 06:54] LABS: Reflexed Lactate in 2 Hours Y
[2024-01-19 07:20] LABS: Lactate 2HR (Lactic Acid Rflx) 3.1 mmol/L (0.7-2.1)
--- NOTE | 2024-01-19 09:09 | PC.NURSE ---
Pt ultrasound sonographer rodriguez, has to use restroom. AAOx3. ambulatory, no assist. speaking in clear sentences. other than feeling slightly dizzy pt is acting in a normal manner. asking for plan. advised MD will be in to speak to her.
== END 2024-01-19 09:39 | disposition home or self-care (01) ==
PROVIDERS: Emergency Medicine; Emergency Provider Emergency Medicine; PCP Family Medicine
DX: F10.939 Alcohol use, unspecified with withdrawal, unspecified (principal); Y90.5 Blood alcohol level of 100-119 mg/100 ml
CPT/HCPCS: 36415; 80053; 80305; 80320; 81003; 81025; 82962; 83605; 85025; 85610; 96361; 96365; 96375; 96376; 99284; J2405; J2560